=== PATIENT | male | born 1990 | race African-American/Black ===

== ENCOUNTER 2019-01-05 11:23 | Emergency (ER) | payer OTHER ==
[2019-01-05 11:32] VITALS: BP 142/90; PULSE 90; TEMP 98.2; BMI 38.7
[2019-01-05] MEDS ORDERED: DIPHTH,PERTUSS(ACELL),TET 0.5 ML DISP.SYRIN IM ONE ×2 (12:16→12:29)
[2019-01-05] MEDS ORDERED: BACITRACIN 15 GM TUBE TOPICAL OINTMENT TP ONE (12:16)
--- NOTE | 2019-01-05 12:16 | PDOC ---
History of Present Illness - General Chief Complaint: Injury Stated Complaint: LT. KNEE LAC. Time Seen by Provider: 01/05/19 11:59 History Source: Patient - History of Present Illness Initial Comments: 01/05/19 12:58 Chief complaint: Knee laceration 28-year-old male with a history of eczema, who states he cut his left knee, getting into his truck, it head on something in the truck. Patient is ambulatory. Patient does not know when his last tetanus was. GENERAL/CONSTITUTIONAL: No fever, weakness. dizziness HEAD, EYES, EARS, NOSE AND THROAT: No change in vision. No ear pain or discharge. No sore throat. CARDIOVASCULAR: No chest pain RESPIRATORY: No shortness of breath or cough GASTROINTESTINAL: No pain, nausea, vomiting, diarrhea or constipation GENITOURINARY: No dysuria MUSCULOSKELETAL: No neck or back pain SKIN: No rash, + laceration NEUROLOGIC: No headache, vertigo, loss of consciousness, or loss of sensation. GENERAL: The patient is awake, alert, and fully oriented, in no acute distress. HEAD: Normal with no signs of trauma. EYES: Pupils equal, round and reactive to light, sclera anicteric, conjunctiva clear. ENT: pharynx: no erythema, no exudate, uvula midline NECK: supple CHEST: clear, nontender, rr ABD: soft, nontender BACK: no tenderness or signs of injury EXTREMITIES: Left knee with 2.5 cm laceration across the mid patella,no erythema , no deformity, full range of motion, neurovascular intact. Rest of extremities , normal range of motion, no edema. NEUROLOGICAL: Normal speech, normal gait. SKIN: Warm, Dry Past History - Past Medical History Allergies/Adverse Reactions: Allergies Allergy/AdvReac Type Severity Reaction Status Date / Time No Known Allergies Allergy Verified 01/05/19 11:28 COPD: No - Immunization History Immunization Up to Date: Yes - Suicide/Smoking/Psychosocial Hx Smoking History: Current every day smoker Number of Cigarettes Smoked Daily: 10 Information on smoking cessation initiated: No Hx Alcohol Use: No Drug/Substance Use Hx: No *Physical Exam - Vital Signs Last Vital Signs Temp Pulse Resp BP Pulse Ox 98.2 F 90 17 142/90 99 01/05/19 11:28 01/05/19 11:28 01/05/19 11:28 01/05/19 11:28 01/05/19 11:28 Procedures - Laceration/Wound Repair Left Anterior Knee Wound Length: to 2.5 cm Wound Explored: clean Wound's Depth, Shape: superficial, linear Irrigated w/ Saline: Yes Betadine Prep: Yes Anesthesia: 2% Lidocaine Wound Repaired With: Sutures Suture Size/Type: 4:0 Number of Sutures: 9 Layer Closure: Yes Deep Layer Suture Size/Type: 3:0, vycril Number of Deep Layer Sutures: 1 Sterile Dressing Applied: Yes Splint Applied: No Medical Decision Making - Medical Decision Making 01/05/19 13:03 28-year-old male with history of eczema with knee laceration, cut his knee while getting in a truck, no mechanism for fracture, no foreign body seen. Patient needs laceration repair. Discussed issues, findings, results, applicable medications and treatments and follow-up. All these were understood and all questions were answered *DC/Admit/Observation/Transfer Diagnosis at time of Disposition: Knee laceration Qualifiers: Encounter type: initial encounter Laterality: left Qualified Code(s): S81.012A - Laceration without foreign body, left knee, initial encounter - Discharge Dispostion Disposition: HOME Condition at time of disposition: Stable Decision to Admit order: No - Referrals - Patient Instructions Printed Discharge Instructions: DI for Laceration Repair Additional Instructions: Do not get wet for 2 days. Apply bacitracin several times a day. After this you can gently clean it with soap and water and apply bacitracin at least 2 times daily. Have reevaluated if redness, pus or getting worse. Have sutures evaluated for removal in 10-14 days - Post Discharge Activity
== END 2019-01-05 13:02 | disposition home or self-care (01) ==
LOC: JERFT 11:23
PROC: 3E0234Z Introduction of Serum, Toxoid and Vaccine into Muscle, Percutaneous Approach (ICD-10-PCS; principal; 2019-01-05)
PROC: 0HQLXZZ Repair Left Lower Leg Skin, External Approach (ICD-10-PCS; 2019-01-05)
DX: S81.012A Laceration without foreign body, left knee, initial encounter (principal); V68.4XXA Person boarding or alighting a heavy transport vehicle injured in noncollision transport accident, initial encounter; W22.8XXA Striking against or struck by other objects, initial encounter; Y92.488 Other paved roadways as the place of occurrence of the external cause; Y99.0 Civilian activity done for income or pay; Y93.89 Activity, other specified
CPT/HCPCS: 90715; 99281-25